=== PATIENT | male | born 1955 | race Caucasian/White ===

== ENCOUNTER 2020-09-13 14:47 | Outpatient (REF) | payer OTHER, SELFPAY ==
[2020-09-13 15:22] LABS: COVID-19 Test Negative (Negative); IDNOW Serial# 55D5AD1C
== END 2020-09-13 14:48 | disposition home or self-care (01) ==
LOC: HO.LAB 14:47
PROVIDERS: Visit Provider Internal Medicine
DX: Z20.822 Contact with and (suspected) exposure to COVID-19 (principal)
CPT/HCPCS: 36415; 87635; C9803

== ENCOUNTER 2025-01-03 14:56 | Outpatient (AMB) | payer OTHER, SELFPAY ==
--- OUTSIDE RECORDS SUMMARY | 2024-11-17 04:00 | XMS_ITS | Encounter Summary ---
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 This section includes the names of all active insurance providers for the patient. Insurance Provider Type of Coverage Plan Name Start of Policy Coverage End of Policy Coverage Group Number Member ID Insurance Provider's Telephone Number Policy Tristan's Name Patient's Relationship to Policy Tristan MEDICARE (WNR) MEDICARE (M) PART A Feb 23, 2020 PART A [id number] CHARLES RIVERAINGRID PATIENT MEDICARE (WNR) MEDICARE (M) PART A Feb 23, 2020 PART A [id number] [phone] CHARLES RIVERAINGRID PATIENT Selected Encounter This section includes the information on record at [place] for the Encounter. 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 Date/Time Primary/Secondary Diagnosis Diagnosis Name Provider Source Nov 17, 2024 08:45 AM PRIMARY Deficiency of other specified B group vitamins RUT ADDISON Plan of Treatment: Future Appointments (+ 6 months) and Future Tests (+/- 45 days) The Plan of Treatment section includes future care activities for the patient from all [place] [facility]. This section includes future appointments and future orders which are active, pending or scheduled. Future Appointments This section includes appointments that were scheduled to occur 6 months from the date of the Encounter, up to a maximum of 20 appointments. The data comes from all [facility]. Appointment Date/Time Appointment Type Appointme nt Facility Name Nov 23, 2024 08:30 AM AMBULATORY - NONE [facility] [place] [facility] Nov 23, 2024 09:00 AM AMBULATORY - NONE [facility] [place] [facility] Dec 01, 2024 08:30 AM AMBULATORY - MEDICINE [place] [facility] [place] [facility] Dec 15, 2024 08:00 AM AMBULATORY - MEDICINE [place] [facility] [place] [facility] Dec 29, 2024 08:00 AM AMBULATORY - MEDICINE [facility] Jan 03, 2025 03:00 PM AMBULATORY - MEDICINE [place] [facility] [place] [facility] Jan 12, 2025 08:00 AM AMBULATORY - MEDICINE [facility] Jan 26, 2025 08:00 AM AMBULATORY - MEDICINE [place] [facility] [place] [facility] Feb 13, 2025 08:00 AM AMBULATORY - MEDICINE [facility] [place] May 04, 2025 08:30 AM AMBULATORY - MEDICINE [facility] Active, Pending, and Scheduled Orders This section includes a listing of several types of active, pending, and scheduled orders, including clinic medications orders, diagnostic test orders, procedure orders and consult orders; where the start date of the order is 45 days before the date of the Encounter or 45 days after the date of theEncounter. The data comes from all [facility]. Test Date/Time Test Type Test Details Facility Name October 20, 2024 12:00 AM Laboratory - Chemi stry Order FOLATE BLOOD (SST-GOLD) SERUM SP ONCE [facility] Nov 16, 2024 08:44 AM Imaging - General Radiology Order LEFT KNEE 3 VIEWS WEIGHT BEARING ADRIAN Dec 05, 2024 06:49 AM Consult Order [facility]THO SURGICAL Cons Automatic Buffer's Choice [facility] Lab Results: +/- 30 days of the encounter This section includes the Chemistry and Hematology Lab Results on record with [place] for the patient. Radiology Reports and Pathology Reports are provided separately, in subsequent sections. Lab Results This section contains the Chemistry/Hematology Results that were resulted 30 days before or 30 daysafter the date of the Encounter. Date/Time Source Result Type Result - Unit Interpretation Reference Range Specimen Type Comment Oct 24, 2024 08:41 AM [facility] HEMOGLOBIN A1C PANEL BLOOD Specimen T ype: BLOOD Comment: Values obtained from A1C measurements can vary. For atypical A1C assays, a reported value of 7.0 could actually be between 6.72 and 7.28 if measured by a reference method. A reported value of 9.0 could actually be between 8.73 and 9.27. Ref: http://www.ngsp .org/CAPdata.as p Ordering Provider: RAFAEL CORTES Report Released Date/Time: October 20, 2024 03:57 PM Reporting Lab: [address] [address] Performing Lab: [address] [address] HEMOGLOBIN A1C 5.2 4.0-5.6 Oct 24, 2024 08:41 AM [facility] LIPID PANEL FASTING SERUM Specimen Ty pe: SERUM Comment: Hemolysis present analysis cannot be performed. Hemolysis present may falsly elevate Potassium Total and Direct Bili, Iron, AST, %Fe. Ordering Provider: RAFAEL CORTES Report Released Date/Time: October 20, 2024 03:57 PM Reporting Lab: [address] [address] Performing Lab: [address] [address] CHOLESTEROL 167 mg/dL TRIGLYCERIDE 145 mg/dL 0-150 LDL calculated 87 mg/dL 0-129 CHOL/HDL 3.3 HDL CHOLESTEROL 51 mg/dL >40 Oct 24, 2024 08:41 AM [facility] LIVER FUNCTION SERUM Specimen Type: SERUM Comment: Hemolysis present analysis cannot be performed. Hemolysis present may falsly elevate Potassium Total and Direct Bili, Iron, AST, %Fe. Ordering Provider: RAFAEL CORTES Report Released Date/Time: October 20, 2024 03:57 PM Reporting Lab: [address] [address] Performing Lab: [address] [address] PROTEIN,TOTAL 7.7 g/dL 6.4-8.3 ALBUMIN 4.8 g/dL H 3.2-4.6 ALKALINE PHOSPHATASE 102 U/L 40-150 AST comment U/L 5-34 ALT 47 U/L 0-55 BILIRUBIN, TOTAL 0.6 mg/dL 0.2-1.2 Oct 24, 2024 08:41 AM [facility] TSH SERUM Sp ecimen Type: SERUM No comment entered. Ordering Provider: RAFAEL CORTES Report Released Date/Time: October 20, 2024 03:57 PM Reporting Lab: [address] [address] Performing Lab: [address] [address] TSH 1.46 u[IU]/mL 0.35-4.94 Oct 24, 2024 08:41 AM [facility] FERRITIN SERUM Sp ecimen Type: SERUM No comment entered. Ordering Provider: RAFAEL CORTES Report Released Date/Time: October 20, 2024 04:03 PM Reporting Lab: [address] [address] Performing Lab: [address] [address] FERRITIN 37.7 ng/mL 21.8-274.7 Oct 24, 2024 08:41 AM [facility] BASIC METABOLIC PANEL (fasting) SERUM Specimen Type: SERUM Comment: Hemolysis present analysis cannot be performed. Hemolysis present may falsly elevate Potassium Total and Direct Bili, Iron, AST, %Fe. Ordering Provider: RAFAEL CORTES Report Released Date/Time: October 20, 2024 03:57 PM Reporting Lab: [address] [address] Performing Lab: [address] [address] UREA NITROGEN 16 mg/dL 8-26 GLUCOSE 84 mg/dL 65-100 SODIUM 140 mmol/L 136-145 POTASSIUM 4.4 mmol/L 3.5-5.1 CHLORIDE 105 mmol/L 98-107 CO2 25 meq/L 23-31 CALCIUM 9.2 mg/dL 8.8-10 CREATININE, Serum 0.94 mg/dL 0.72-1.25 eGFR(CKD-EPI 2020) 87 mL/min >60 Oct 24, 2024 08:41 AM [facility] VITAMIN B12 SERUM Specimen Type: SERUM No comment entered. Ordering Provider: RAFAEL CORTES Report Released Date/Time: October 20, 2024 04:03 PM Reporting Lab: [address] [address] Performing Lab: [address] [address] VITAMIN B12 446 pg/mL 213-816 Oct 24, 2024 08:41 AM [facility] IRON & TIBC PANEL SERUM Specimen Type: SERUM Comment: Hemolysis present analysis cannot be performed. Hemolysis present may falsly elevate Potassium Total and Direct Bili, Iron, AST, %Fe. Ordering Provider: RAFAEL CORTES Report Released Date/Time: October 20, 2024 04:03 PM Reporting Lab: [address] [address] Performing Lab: [address] [address] TIBC 391 ug/dL 204-475 IRON 101 ug/dL 65-175 Transferrin Saturation 25.8 15-45 Transferrin (TRF) 296 mg/dL 180-382 Oct 24, 2024 08:41 AM [facility] CBC AND DIFF (AUTO) BLOOD Specimen Ty pe: BLOOD No comment entered. Ordering Provider: RAFAEL CORTES Report Released Date/Time: October 20, 2024 03:57 PM Reporting Lab: [address] [address] Performing Lab: [address] [address] WBC 5.58 10*3/uL 4.50-11.00 RBC 4.55 10*6/uL 4.23-5.66 HGB 15.3 g/dL 12.8-17 HCT 44.2 39.2-50.4 MCV 97.1 fL 82-99 MCHC 34.6 g/dL 30.8-35.1 PLT 150 10*3/uL 140-360 MPV 12.2 fL 9.2-12.4 RDW-CV 12.0 12.0-16.0 MONO, ABS 0.54 10*3/uL 0.30-1.10 MCH 33.6 pg H 26.2-32.6 NEUT % 62.5 43.7-75.8 LYMPH % 22.0 14.0-42.3 MONO % 9.7 5.1-13.7 EOS % 4.5 0.4-6.8 BASO % 0.9 0.1-2.0 NEUT, ABS 3.49 10*3/uL 2.20-7.60 LYMPH, ABS 1.23 10*3/uL 1.00-3.20 EOS, ABS 0.25 10*3/uL 0.03-0.44 BASO, ABS 0.05 10*3/uL 0.01-0.13 IMMATURE GRAN % 0.4 0.0-0.7 IMMATURE GRAN, ABS 0.02 10*3/uL 0.00-0.0 6 NRBC % 0.0 0.0-0.0 NRBC, ABS 0.00 10*3/uL 0.00-0.00 Social History: Smoking Status (Most current) and Tobacco Use (All prior to encounter date) This section includes the most current, and the historical, smoking and tobacco- related health factors from the [place] facility where the Encounter took place. Current Smoking Status This section includes the most current smoking, or tobacco-related health factor, from the [place] facility where the Encounter took place. Date/Time Current Smoking Status Comment Pete villanueva Jan 07, 2024 08:00 AM VA-TOBACCO NEVER USED [facility] Tobacco Use History This section includes a history of the smoking, or tobacco-related health factors, that were collected on or before the date of the Encounter. The data comes from the [place] facility where the Encounter took place. Date/Time Smoking Status/Tobacco Use Comment Francis kim Jan 29, 2023 08:00 AM VA-TOBACCO NEVER USED [facility] May 16, 2020 09:00 AM VA-TOBACCO NEVER USED [facility] May 26, 2019 03:15 PM VA-TOBACCO NEVER USED [facility] Jun 08, 2018 08:56 AM VA-TOBACCO FORMER USER [facility] Jun 08, 2018 08:56 AM VA-TOBACCO QUIT 1 TO < 5 YRS [facility] Apr 15, 2017 09:06 AM LIFETIME NON-TOBACCO USER [facility] Apr 22, 2016 08:58 AM QUIT TOBACCO USE > 7 YEARS AGO chewed tobbacco as a youth [facility] May 01, 2015 03:10 PM CURRENT SMOKER chew tobacco [facility] Nov 20, 2009 07:44 AM LIFETIME NON-TOBACCO USER [facility] Advance Directives: All historical and current Section Date Range: From patient's date of to the date document was created. This section includes ALL of a patient's completed or amended [place] Advance and Rescinded Directives. The entries below indicate that a directive exists for the patient, but an actual copy is not included with this document. The data comes from all [place] facilities. Date Advance Directives Provider Source Jan 15, 2019 ADVANCE DIRECTIVE ANGELLA KNAPP [facility] Radiology Reports: +/- 30 days of the encounter Radiology Reports For cases when an order for radiology services may have been completed prior to the date of the Encounter, the report list includes the Radiology Reports that were completed up to 30 days before dateof the Encounter. For cases when an order for radiology services may have been completed after the date of the Encounter, the report list also includes the Radiology Reports that were completed up to30 days after date of the Encounter. The data comes from all [place] treatment facilities. 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 Safety Assessment: You must answer ALL questions or this questionnaire is not captured. Ordering provider, phone number and beeper:Ildefonso Mejia Weight: 200.6 lb [90.99 kg] (10/27/2024 08:50) Height: 67 in [170.2 cm] (10/27/2024 08:50) Creatinine: CREATININE Collection DT Specimen Test Name Result Units Ref Range 07/07/2024 08:11 URINE CREATININE URINE 153.63 mg/dL BUN: BUN Collection DT Specimen Test Name Result Units Ref Range 10/24/2024 08:41 SERUM !! UREA NITROGEN 16 mg/dL 8 - 26 !! Indicates COMMENTS AVAILABLE...Refer to Interim Lab Report. Can Radiology order radiographs on your behalf limited to a body area in question for the specific reason of excluding metallic foreign bodies as needed, to ensure safe performance of the MRI study requested: No The Radiologist may determine that the administration of oral and/or IV contrast is/or is not required based on clinical history and renal function. If you would like to specifically discuss the protocol please call Radiology at [facility]. Does the patient have any contraindications to MRI? No - Metal in eyes No - Intracranial aneurysm clip/coil No - Pacemaker No - Implanted electronic device No - Cochlear Implant No - Insulin pumps No - Glucose meters Recent Surgeries: No Anything IN or ON your body you were not born with: No Report Status: Verified Date Reported: NOV 29, 2024 Date Verified: NOV 29, 2024 Installer Apprentice E-Sig: Report: MRI KNEE W/O CONTRAST (LEFT) HISTORY: Twisting injury 2 weeks ago COMPARISON: 11/23/2024 TECHNIQUE: Multisequence multiplanar [facility] of the left [facility] 201 images were received by the [place] [facility] ([facility]) for interpretation. IV CONTRAST: None. FINDINGS: Medial tibial femoral compartment: Medial meniscus: Complex tear body and posterior horn medial meniscus Medial femoral cartilage: Full thickness cartilage defect in the medial femoral condyle with subchondral bone marrow edema. Medial tibial plateau cartilage: Full thickness cartilage defect in the medial tibial plateau with subchondral bone marrow edema and subchondral cyst. Lateral tibial femoral compartment: Moderate osteophytes. Lateral meniscus: Intact Lateral femoral cartilage: No high-grade cartilage defect Lateral tibial plateau cartilage: Cartilage thinning in the periphery of the lateral tibial plateau Patellofemoral compartment: Alignment:Normal Extensor mechanism: Quadriceps tendon:Intact. Patellar tendon: Intact. Patellar cartilage: No high-grade cartilage defect Trochlear cartilage: No high-grade cartilage defect Trochlear groove: Normal Plica: Normal Fat pads: Normal Patellar retinaculum: Intact. Ligaments and tendons: Anterior cruciate ligament: Intact. Posterior cruciate ligament: Intact. Medial collateral ligament complex: Thickened and bowing of the superficial medial collateral ligament. Lateral collateral ligament complex and supporting structures: Heterogenous signal in the fibular collateral ligament. Posterior medial corner: Acute sprain of the posterior oblique ligament. 1.5 x 1.4 cm multilobulated ganglion adjacent to the medial joint capsule and posterior oblique ligament. Posterior lateral corner: Popliteus tendinosis. Proximal tibial fibular osteoarthritis Bones/marrow: No acute fracture or osteonecrosis. Miscellaneous: Joint effusion: Small joint effusion Patricio's cyst: Trace fluid. Joint bodies: None Muscular structures: Unremarkable Vessels and nerves: Unremarkable Impression: 1. Complex tear body and posterior horn medial meniscus with areas of full thickness cartilage loss in the medial tibiofemoral compartment 2. Sequelae of prior injury to the medial and lateral collateral ligaments. READING PHYSICIAN: Graciela Barth M.D. -[phone] 11/29/2024 9:40 PDT [facility] [phone] (For Medical Practitioner Use Only) Attention Patients / Veterans: If you have questions or concerns about these test results, please contact your ordering provider or primary care team. 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 Comparison: No priors available. Findings: No fracture or dislocation. Tricompartmental degenerative changes with the medial and patellofemoral compartments most affected. Vascular calcifications. Impression: No acute bony injury. READING PHYSICIAN: Rickey Fierro M.D. -[phone] 11/28/2024 17:57 PDT [facility] [phone] (For Medical Practitioner Use Only) Attention Patients / Veterans: If you have questions or concerns about these test results, please contact your ordering provider or primary care team. Primary Diagnostic Code: NO ALERT REQUIRED Primary Interpreting Staff: RADIOLOGY,OUTSIDE SERVICE, Staff Physician / RADIOLOGY,OUTSIDE SERVICE [facility] Encounter Notes: All associated encounter notes This section contains the clinical notes associated to the Encounter. Date/Time Encounter Note(s) Provider Source Nov 17, 2024 08:35 AM NURSING NOTE: LOCAL TITLE: PRIMARY CARE NURSE NOTE STANDARD TITLE: NURSING NOTE DATE OF NOTE: NOV 17, 2024@08:35 ENTRY DATE: NOV 17, 2024@08:35:32 AUTHOR: RUT ADDISON EXP COSIGNER: URGENCY: STATUS: COMPLETED Patient identity was verified using two identifiers, per [place] Policy: Full Name, Date of INGRID SOTO is a 69 year old who presents to the clinic for Vit B-12 Injection per RAFAEL CORTES for diagnosis of: Vit B-12 deficiency Visit Type: Scheduled Patient Education: Does patient require Patient Education Teaching Assessment? No Patient Education provided? Yes Learner: Patient Readiness to Learn: Patient is receptive to learning Topic/Teaching Needs: Other: S/s of infection at or around injection site, side effects and efficacy of medication. Teaching Method: Explanation Learner's Response to Education: Able to explain education in own words Injection Administration (Other than Immunization): S: CYANOCOBALAMIN INJ,SOLN 1000MCG/ML O: Latest labs (if needed): 10/24/24: Vitamin B-12: 446 Order reviewed: Yes Order expiration date: 08/19/25 Vitals (last observed): Temperature: 97.5 F [36.4 C] (07/21/2024 08:53) Pulse: 66 (10/27/2024 08:50) Respiration: 18 (10/27/2024 08:50) Blood Pressure: 121/72 (10/27/2024 08:50) 96% (10/27/2024 08:50) Pain: 0 (07/21/2024 08:53) Height: 67 in [170.2 cm] (10/27/2024 08:50) Weight: 200.6 lb [90.99 kg] (10/27/2024 08:50) BMI: 31.5 Allergies: BEE STINGS, AMLODIPINE, DULOXETINE Medication administered: Cyanocobalamin 1000mcg/ml Route: IM Site: Right Deltoid Muscle Fixing Machine Operator: Posiba Lot Number: [id number] Expiration Date: 11/2026 Patient Education/Comments: Leeper tolerated injection well, reported efficacy, denied any side effects. P: Next Appointment: Other: 12/01/24 @ 1000 Time spent with : 15 minutes No RN clinical reminders due at this time. /tan/ RUT ADDISON REGISTERED NURSE Signed: 11/17/2024 08:45 RUT ADDISON
--- NOTE | 2025-01-03 14:58 | A.OFFVIS_ITS ---
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 He describes his pain as sharp in nature. Most of the pain is along the medial and anterior aspects of his knee. He has failed the last 3 months of conservative treatment which has included Tylenol, anti- inflammatory medicines, a home exercise program and formal physical therapy. He did have a cortisone injection given into his left knee several months ago by another provider. That injection gave him only temporary relief. He wishes to hold off on surgery if at all possible. At this point his left knee pain is interfering with his activities of daily living and his ability to sleep well through the night. Allergies bee pollen (bee stings) Allergy (Severe, Verified 01/03/25 15:04) Swelling Medication List - Last Reviewed 01/03/25 by Margarita Loomis aspirin 81 mg PO DAILY atorvastatin (Lipitor) 80 mg PO BEDTIME clonidine 1 patch transdermal QWEEK ezetimibe 10 mg PO DAILY lisinopril 40 mg PO DAILY Physical Exam Vital Signs: BMI result Body Mass Index 29.0 Const Other: Well-nourished well-developed very friendly male awake alert and oriented x3 in no acute distress Extrem Other: Bilateral lower extremity examination shows good capillary refill, no skin lesions noted, normal sensation light touch Left knee examination shows a minimal effusion, palpable crepitus with range of motion, pain with range of motion, no instability Results Reviewed Results Reviewed: X-rays of the patient's left knee show moderate to severe joint space narrowing most significant in the medial compartment and patellofemoral joint, no acute bony abnormalities MRI of the patient's left knee shows moderate to severe degenerative changes with bony edema in the medial tibial plateau Assessment & Plan Assessment & Plan (1) Osteoarthritis of left knee: Code(s): M17.12 - Unilateral primary osteoarthritis, left knee Category: Medical Plan Mr. Lujan presents with progressively worsening left knee pain due to os teoarthritis. I had a lengthy discussion with the patient regarding the treatment options. He wishes to hold off on surgery if at all possible. I agree with this plan. I will see if the patient's insurance company will cover a viscosupplementation injection, such as Durolane, for his left knee. I will see him back once the injection is available. Feel free to call me at any time should questions regarding his orthopedic management arise. Thank you very much for asking me to see this very friendly gentleman. I spent 20 minutes in reviewing the patient's records and imaging studies, rin ng the patient and documenting in the medical record. Coding Level of Care Code New Pt Level 3 (83727) Complex EM visit Add On G2211 Diagnoses Osteoarthritis of left knee M17.12
[2025-01-03 15:03] VITALS: BMI 29.0
--- OUTSIDE RECORDS SUMMARY | 2025-01-03 15:47 | XMS_ITS | Clinical Summary ---
Author Organization [address] [facility] Address [address] [place] [address] Phone Care Team Providers Care Install And Repair Technician Name Role Phone Parish Fregoso NP Primary Care Provider [phone] Allergies Active Allergy Reactions Criticality Noted Date Comments Amlodipine 05/09/2024 Bee Sting Kit 05/09/2024 Duloxetine 05/09/2024 Medications benzonatate (TESSALON) 200 mg capsule Take 1 capsule (200 mg total) by mouth 3 (three) times a day if needed for cough. Do not crush or chew. Active carboxymethylce llulose (REFRESH PLUS) 0.5 % ophthalmic solution Administer 1 drop into both eyes if needed for dry eyes. Active cloNIDine (CATAPRES) 0.2 mg tablet Take 1 tablet (0.2 mg total) by mouth 2 (two) times a day. Active clotrimazole (LOTRIMIN) 1 % external solution Apply topically 2 (two) times a day. Active lisinopril (PRINIVIL,ZESTR IL) 40 mg tablet Take 1 tablet (40 mg total) by mouth 1 (one) time each day. Active ezetimibe (ZETIA) 10 mg tablet Take 1 tablet (10 mg total) by mouth 1 (one) time each day. Active terbinafine (LamISIL) 1 % cream Apply topically 2 (two) times a day. Active Social History Tobacco Use Types Packs/Day Years Used Date Smoking Tobacco: Never Assessed Sex and Gender Information Value Date Recorded Sex Assigned at Not on file Legal Sex Male 1:35 PM EST Gender Identity Not on file Sexual Orientation Not on file Plan of Treatment Health Maintenance Due Date Last Done Comments DTaP,Tdap,and Td Vaccines (1 - Tdap) 1974 Pneumococcal Vaccine: 50+ Ye ars (1 of 1 - PCV) 2005 Zoster Vaccines (1 of 2) 2005 COVID-19 Vaccine (1 - 2023-2 5 season) 2024 Abdominal Aortic Aneurysm (A AA) Screen 05/09/2024 Cholesterol Screening (Lipid Panel) 05/09/2024 Colorectal Cancer Screening: Colonoscopy 05/09/2024 Falls Risk Assessment 05/09/2024 Hepatitis C Screening 05/09/2024 Social Influencers of Health Screening 05/09/2024 Depression Screening 05/25/2024 Influenza Vaccine (#1) 2025 RSV Immunization Adult Patie nts (1 - 1-dose 75+ series) 2030 HIB Vaccines Aged Out No longer eligi ble based on patient's age to complete this topic HPV Vaccines Aged Out No longer eligi ble based on patient's age to complete this topic Hepatitis A Vaccines Aged Out No long er eligible based on patient's age to complete this topic Hepatitis B Vaccines Aged Out No long er eligible based on patient's age to complete this topic IPV Vaccines Aged Out No longer eligi ble based on patient's age to complete this topic MMR Vaccines Aged Out No longer eligi ble based on patient's age to complete this topic Meningococcal ACWY Vaccine Aged Out N o longer eligible based on patient's age to complete this topic Meningococcal B Vaccine Aged Out No l onger eligible based on patient's age to complete this topic RSV Immunization Patients Un selene 20 months Aged Out No longer eligible b ased on patient's age to complete this topic Varicella Vaccines Aged Out No longer eligible based on patient's age to complete this topic Insurance [facility] Care Teams Install And Repair Technician Relationship Specialty Start Date End Date Parish Fregoso NP [address] [place] [address] PCP - General Nurse Practitioner 05/09/24
== END 2025-01-03 15:24 | disposition home or self-care (01) ==
LOC: HO.HOS 14:57
PROVIDERS: Visit Provider Orthopaedic Surgery
DX: M17.12 Unilateral primary osteoarthritis, left knee (principal)
CPT/HCPCS: 99203; G2211

== ENCOUNTER → 2025-01-03 14:56 | Outpatient (BNVA) | payer OTHER, SELFPAY | PROVIDERS: Visit Provider Orthopaedic Surgery | DX: M17.12 Unilateral primary osteoarthritis, left knee (principal) | CPT/HCPCS: 99202 ==